=== PATIENT | female | born 1990 | race Hispanic/Latino ===

== ENCOUNTER 2018-02-26 17:41 | Emergency (ER) | payer MEDICAID, OTHER ==
[2018-02-26 17:42] VITALS: BMI 34.9
[2018-02-26 17:51] VITALS: RESP 18; TEMP 98.1; O2SAT 96
--- NOTE | 2018-02-26 18:26 | ED PDOC ---
Arrival/HPI - General Chief Complaint: Lower Extremity Problem/Injury Time Seen by Provider: 02/26/18 18:12 Historian: Patient - History of Present Illness Narrative History of Present Illness (Text): 02/26/18 18:26 This 27 yo obese female presents to this ED c/o left foot pain since early today. Patient stated she was Dx. stress Fx. of the same area of her foot x 7 weeks. She said she saw her private Water Quality Tester on December 25 who performed foot x- rays and found stress fracture. Patient saw her senior sales representative for follow up 2 more times, and On February 04, her senior sales representative told patient fractured has healed. Patient stated she was doing good till today. Patient denies recent trauma, weakness, or paresthesias. Time/Duration: Other (see hpi) Quality: Aching Context: Home Past Medical History - Provider Review Nursing Documentation Reviewed: Yes - Infectious Disease Hx of Infectious Diseases: None - Tetanus Immunization Tetanus Immunization: Unknown - Past Medical History Past Medical History: Non-Contributing - Cardiac Hx Cardiac Disorders: No - Pulmonary Hx Respiratory Disorders: No - Neurological Hx Neurological Disorder: No - HEENT Hx HEENT Disorder: No - Renal Hx Renal Disorder: No - Endocrine/Metabolic Hx Endocrine Disorders: No - Hematological/Oncological Hx Blood Disorders: No - Integumentary Hx Dermatological Disorder: No - Musculoskeletal/Rheumatological Hx Musculoskeletal Disorders: Yes Other/Comment: In December 2017, stress fracture to L foot - Gastrointestinal Hx Gastrointestinal Disorders: Yes Other/Comment: gallstones - Genitourinary/Gynecological Hx Genitourinary Disorders: No - Psychiatric Hx Psychophysiologic Disorder: No Hx Substance Use: No - Past Surgical History Past Surgical History: No Previous - Anesthesia Hx Anesthesia: No Hx Anesthesia Reactions: No Hx Malignant Hyperthermia: No - Suicidal Assessment Feels Threatened In Home Enviroment: No Family/Social History - Physician Review Nursing Documentation Reviewed: Yes Family/Social History: Other (noncontributory) Smoking Status: Never Smoked Hx Alcohol Use: No Hx Substance Use: No Hx Substance Use Treatment: No Allergies/Home Meds Allergies/Adverse Reactions: Allergies No Known Allergies Allergy (Verified 11/02/15 16:05) Home Medications: Home Meds Medication Instructions Recorded Confirmed Levonorgestrel-Ethin Estradiol 1 tab PO DAILY 02/26/18 02/26/18 [[place]-28 Tablet] Review of Systems - Review of Systems Constitutional: Normal Eyes: Normal ENT: Normal Respiratory: Normal Cardiovascular: Normal Gastrointestinal: Normal Genitourinary Female: Normal Musculoskeletal: Other ((+) left foot pain) Skin: Normal Neurological: Normal Endocrine: Normal Hemo/Lymphatic: Normal Psychiatric: Normal Physical Exam Vital Signs Temp Pulse Resp BP Pulse Ox 02/26/18 19:30 86 18 115/65 96 02/26/18 17:50 98.1 F 99 H 18 117/69 96 Temperature: Afebrile Blood Pressure: Normal Pulse: Regular Respiratory Rate: Normal Appearance: Positive for: Well-Appearing, Non-Toxic, Comfortable Pain Distress: None Mental Status: Positive for: Alert and Oriented X 3 - Systems Exam Head: Present: Atraumatic, Normocephalic Mouth: Present: Moist Mucous Membranes Neck: Present: Normal Range of Motion Upper Extremity: Present: Normal Inspection, Normal ROM Lower Extremity: Present: Normal Inspection, NORMAL PULSES, Normal ROM, Tenderness (Mild tenderness over 5th MPJ of left foot, soft tissue) Neurological: Present: GCS=15, CN II-XII Intact, Speech Normal, Motor Func Grossly Intact, Normal Sensory Function, Gait Normal Skin: Present: Warm, Dry, Normal Color. No: Rashes Psychiatric: Present: Alert, Oriented x 3, Normal Insight, Normal Concentration Medical Decision Making ED Course and Treatment: 02/26/18 19:07 Re-evaluation. Patient feels better. Discussed results and plan with patient who expresses understanding. All questions answered and there is agreement with the plan to discharge home with instructions. Patient stable for discharge. Return if symptoms persist or worsen. Patient was recommended RICE. To f/u private Water Quality Tester, and Motrin for 3-5 days for pain with food as needed. Re-evaluation Time: 19:08 Reassessment Condition: Re-examined, Improved - RAD Interpretation Narrative RAD Interpretations (Text): 02/26/18 19:08 Foot x-rays: No Fx. Radiology Orders: 02/26/18 18:12 FOOT LEFT 3 VIEWS ROUTINE [RAD] Stat - Medication Orders Current Medication Orders: Discontinued Medications Ibuprofen (Motrin Tab) 600 mg PO STAT STA Stop: 02/26/18 18:27 Last Admin: 02/26/18 19:30 Dose: 600 mg MAR Pain/Vitals Document 02/26/18 19:30 EQ (Rec: 02/26/18 19:30 EQ [id number]) Pain Reassessment Is This A Pain ReAssessment? No Sleep Is patient sleeping during reassessment? No Presence of Pain Presence of Pain Yes Disposition/Present on Arrival - Present on Arrival Any Indicators Present on Arrival: No History of DVT/PE: No History of Uncontrolled Diabetes: No Urinary Catheter: No History of Decub. Ulcer: No History Surgical Site Infection Following: None - Disposition Have Diagnosis and Disposition been Completed?: Yes Diagnosis: Foot pain Disposition: HOME/ ROUTINE Disposition Time: 19:09 Patient Plan: Discharge Condition: IMPROVED Discharge Instructions (ExitCare): Foot Sprain (DC) Additional Instructions: Call Dr. Melton, private senior sales representative office in 1-2 days for revaluation. Keep foot elevated, ice, rest, crutches, and viviane bandage for at least 7 days. Take medication with food as needed for pain. Remove viviane bandage at bedtime. Return to emergency if pain worsen. Official X-rays of your foot will be available tomorrow, so make sure to review report with your senior sales representative in 1-2 days. Prescriptions: Famotidine [Pepcid] 40 mg PO DAILY #10 tablet Ibuprofen [Motrin] 600 mg PO Q8 PRN #20 tab PRN Reason: Pain, Severe (8-10) Referrals: Joyce Curtis MD [Staff Provider] - Follow up with primary [employer] [facility] [Outside] - Follow up with primary Forms: [employer] (Polish), WORK NOTE
[2018-02-26 19:31] VITALS: BP 115/65; PULSE 86
--- NOTE | 2018-02-27 07:23 | RAD ---
Date of service: 02/26/2018 PROCEDURE: Left Foot Radiographs. HISTORY: pain COMPARISON: None. FINDINGS: BONES: Normal. No fracture. JOINTS: Normal. SOFT TISSUES: Normal. OTHER FINDINGS: None. IMPRESSION: Normal left foot radiographs.
== END 2018-02-26 19:40 | disposition home or self-care (01) ==
LOC: ED 17:41
DX: M79.672 Pain in left foot (principal)

== ENCOUNTER 2018-12-28 13:30 | Emergency (ER) | payer MEDICAID ==
[2018-12-28 13:31] VITALS: BMI 34.9
--- NOTE | 2018-12-28 14:07 | ED PDOC ---
Arrival/HPI - General Chief Complaint: Dental Pain Historian: Patient - History of Present Illness Narrative History of Present Illness (Text): 12/28/18 14:01 28 year old F w/ no significant PMH presenting to the Emergency Room with complaint of right sided jaw pain. The patient states she was yawning yesterday when she felt a popping sensation followed by pain near her right mandible. She reports the pain radiating towards her right ear with repetitive biting motions. She describes the jaw as clicking in and out while biting down, but denies any difficulty with movement. She denies any previous history of similar incident, bruxism, drooling, headache, trauma, or visual disturbances. Time/Duration: 24 hours Symptom Course: Intermittent Quality: Burning Activities at Onset: Other (Yawning) Context: Home Past Medical History - Provider Review Nursing Documentation Reviewed: Yes - Travel History Have you recently traveled outside [place] w/in the past 3 mons?: No - Infectious Disease Hx of Infectious Diseases: None - Tetanus Immunization Tetanus Immunization: Unknown - Past Medical History Past Medical History: Non-Contributing - Cardiac Hx Cardiac Disorders: No - Pulmonary Hx Respiratory Disorders: No - Neurological Hx Neurological Disorder: No - HEENT Hx HEENT Disorder: No - Renal Hx Renal Disorder: No - Endocrine/Metabolic Hx Endocrine Disorders: No - Hematological/Oncological Hx Blood Disorders: No - Integumentary Hx Dermatological Disorder: No - Musculoskeletal/Rheumatological Hx Musculoskeletal Disorders: Yes Other/Comment: In December 2017, stress fracture to L foot - Gastrointestinal Hx Gastrointestinal Disorders: Yes Other/Comment: gallstones - Genitourinary/Gynecological Hx Genitourinary Disorders: No - Psychiatric Hx Psychophysiologic Disorder: No Hx Substance Use: No - Past Surgical History Past Surgical History: No Previous - Surgical History Other/Comment: left foot sx - Anesthesia Hx Anesthesia: No Hx Anesthesia Reactions: No Hx Malignant Hyperthermia: No - Suicidal Assessment Feels Threatened In Home Enviroment: No Family/Social History - Physician Review Nursing Documentation Reviewed: Yes Family/Social History: Unknown Family HX Smoking Status: Never Smoked Hx Alcohol Use: No Hx Substance Use: No Hx Substance Use Treatment: No Allergies/Home Meds Allergies/Adverse Reactions: Allergies No Known Allergies Allergy (Verified 11/02/15 16:05) Home Medications: Home Meds Medication Instructions Recorded Confirmed Levonorgestrel-Ethin Estradiol 1 tab PO DAILY 02/26/18 02/26/18 [[place]-28 Tablet] Review of Systems - Physician Review All systems were reviewed & negative as marked: Yes - Review of Systems ENT: TMJ Pain Physical Exam Vital Signs Reviewed: Yes Vital Signs Temp Pulse Resp BP Pulse Ox 12/28/18 13:45 98.3 F 110 H 18 138/78 98 Temperature: Afebrile Blood Pressure: Normal Pulse: Tachycardic Respiratory Rate: Normal Appearance: Positive for: Well-Appearing, Non-Toxic, Comfortable Pain Distress: None Mental Status: Positive for: Alert and Oriented X 3 - Systems Exam Head: Present: Atraumatic, Normocephalic Pupils: Present: PERRL Extroacular Muscles: Present: EOMI Conjunctiva: Present: Normal Mouth: Present: Moist Mucous Membranes, Other (Tenderness to palpation of R mandible and maxilla. Slight eccymoses noted to R preauricular region. Symmetric jaw opening and closing). No: Dry, Drooling, Trismus, Normal Lips Neurological: Present: CN II-XII Intact, Speech Normal, Motor Func Grossly Intact, Normal Sensory Function Medical Decision Making ED Course and Treatment: 12/28/18 14:10 Impression 28F w/ unilateral R TMJ pain Plan --CTH mandible --Motrin --Poc urine preg Progress Notes 12/28/18 14:57 CT mandible reveal no evidence of fracture or dislocation. Patient updated on findings and advised to treat with NSAIDs as needed. She understands she may follow up with an ENT specialist. Opportunity for questions given and answered. She is stable for discharge. - RAD Interpretation Narrative RAD Interpretations (Text): 12/28/18 14:56 PROCEDURE: CT MAXILLOFACIAL BONES WITHOUT CONTRAST HISTORY: pain on right side of jaw w/ biting COMPARISON: None available. TECHNIQUE: Contiguous axial CT images of the maxillofacial bones were obtained. Coronal and sagittal reformats were generated. Radiation dose: Total exam DLP = 793.07 mGy-cm. This CT exam was performed using one or more of the following dose reduction techniques: Automated exposure control, adjustment of the mA and/or kV according to patient size, and/or use of iterative reconstruction technique. FINDINGS: NASAL BONES: Unremarkable. ORBITS: Unremarkable. PARANASAL SINUSES/ MASTOIDS: Clear. MAXILLA: Unremarkable. MANDIBLE/ TEMPOROMANDIBULAR JOINTS: Unremarkable. SKULL BASE: Unremarkable. TEMPORAL BONES: Middle ears and mastoid grossly unremarkable. OTHER FINDINGS: None. IMPRESSION: The mandible and temporomandibular joints are unremarkable Radiology Orders: 12/28/18 14:00 CT MANDIBLE W/O CONTRAST [CT] Stat Disposition/Present on Arrival - Present on Arrival Any Indicators Present on Arrival: No History of DVT/PE: No History of Uncontrolled Diabetes: No Urinary Catheter: No History of Decub. Ulcer: No History Surgical Site Infection Following: None - Disposition Have Diagnosis and Disposition been Completed?: Yes Diagnosis: Temporomandibular joint (TMJ) pain Disposition: HOME/ ROUTINE Disposition Time: 15:00 Patient Plan: Discharge Condition: STABLE Discharge Instructions (ExitCare): Temporomandibular Joint (TMJ) Disorders (DC) Print Language: DANISH Additional Instructions: All medical record entries made by the Scribe were at my direction and personally dictated by me. I have reviewed the chart and agree that the record accurately reflects my personal performance of the history, physical exam, medical decision making, and the department course for this patient. I have also personally directed, reviewed, and agree with the discharge instructions and disposition. Please apply ice to right jaw and take medications as needed for pain You may schedule an appointment with the ENT specialist listed in your discharge paperwork if you desire Prescriptions: Cyclobenzaprine [Flexeril] 5 mg PO Q6H #10 tab Naproxen 500 mg PO BID #10 tab Referrals: Hiren Wayne DO [Staff Provider] - Follow up with primary Forms: [employer] (Lithuanian)
--- NOTE | 2018-12-28 14:44 | CT ---
Date of service: 12/28/2018 PROCEDURE: CT MAXILLOFACIAL BONES WITHOUT CONTRAST HISTORY: pain on right side of jaw w/ biting COMPARISON: None available. TECHNIQUE: Contiguous axial CT images of the maxillofacial bones were obtained. Coronal and sagittal reformats were generated. Radiation dose: Total exam DLP = 793.07 mGy-cm. This CT exam was performed using one or more of the following dose reduction techniques: Automated exposure control, adjustment of the mA and/or kV according to patient size, and/or use of iterative reconstruction technique. FINDINGS: NASAL BONES: Unremarkable. ORBITS: Unremarkable. PARANASAL SINUSES/ MASTOIDS: Clear. MAXILLA: Unremarkable. MANDIBLE/ TEMPOROMANDIBULAR JOINTS: Unremarkable. SKULL BASE: Unremarkable. TEMPORAL BONES: Middle ears and mastoid grossly unremarkable. OTHER FINDINGS: None. IMPRESSION: The mandible and temporomandibular joints are unremarkable
[2018-12-28 15:20] VITALS: BP 130/74; PULSE 99; RESP 19; TEMP 98; O2SAT 99
== END 2018-12-28 15:20 | disposition home or self-care (01) ==
LOC: ED 13:30
DX: M26.621 Arthralgia of right temporomandibular joint (principal)